=== PATIENT | male | born 1990 | race Caucasian/White ===

== ENCOUNTER 2019-06-13 23:29 | Emergency (ER) | payer OTHER ==
--- NOTE | 2019-06-14 00:01 | PDOC ---
Medical Decision Making - Medical Decision Making 06/14/19 00:01 Patient seen by the advanced practice provider under my direct supervision. Ancillary testing reviewed as necessary. I agree with plan as outlined by the advanced practice provider. Discharge - Discharge Information Problems reviewed: Yes Clinical Impression/Diagnosis: Rectal bleeding Condition: Fair - Follow up/Referral - Patient Discharge Instructions - Post Discharge Activity
[2019-06-14 00:12] VITALS: BP 139/94; PULSE 77; TEMP 98.5; BMI 23.6
--- NOTE | 2019-06-14 00:25 | PDOC ---
History of Present Illness - General Chief Complaint: Rectal Bleed Stated Complaint: BLOOD IN STOOL Time Seen by Provider: 06/13/19 23:57 History Source: Patient Exam Limitations: No Limitations Past History - Past Medical History Allergies/Adverse Reactions: Allergies Allergy/AdvReac Type Severity Reaction Status Date / Time No Known Allergies Allergy Verified 06/14/19 00:10 Home Medications: Ambulatory Orders Albuterol Sulfate Inhaler - [Ventolin Hfa Inhaler -] 2 inh PO PRN PRN 03/26/19 Cetirizine HCl/Pseudoephedrine [Zyrtec-D Tablet] 1 each PO DAILY 03/26/19 Fluticasone Prop 0.05% Nasal [Flonase -] 1 - 2 spray NS DAILY 03/26/19 Tetrahydrz/Dext 70/Peg 400/Pvp [Visine Advanced Eye Drop] 15 ml OP PRN PRN 03/26 Hydrocortisone Acetate [Anusol Hc Suppository -] 25 mg RC DAILY #14 supp.rect Asthma: Yes Cardiac Disorders: No COPD: No Diabetes: No GI Disorders: No Disorders: No HTN: No Kidney Stones: No Seizures: No - Surgical History Abdominal Surgery: No Appendectomy: No Cardiac Surgery: No Cholecystectomy: No Lung Surgery: No Neurologic Surgery: No Orthopedic Surgery: No - Reproductive History Testicular Surgery: No - Psycho Social/Smoking Cessation Hx Smoking History: Never smoked Number of Cigarettes Smoked Daily: 10 'Breaking Loose' booklet given: 03/26/19 Hx Alcohol Use: No Drug/Substance Use Hx: No Substance Use Type: None Hx Substance Use Treatment: No *Physical Exam - Vital Signs Last Vital Signs Temp Pulse Resp BP Pulse Ox 98.5 F 77 18 139/94 98 06/13/19 23:56 06/13/19 23:56 06/13/19 23:56 06/13/19 23:56 06/13/19 23:56 - Physical Exam General Appearance: No: Apparent Distress Respiratory/Chest: positive: Lungs Clear, Normal Breath Sounds. negative: Respiratory Distress Cardiovascular: positive: Regular Rhythm, Regular Rate, S1, S2. negative: Murmur Gastrointestinal/Abdominal: positive: Normal Bowel Sounds, Soft. negative: Tender, Distended, Guarding, Rebound Rectal Exam: positive: hemorrhoids (external, nonthrombosed, not bleeding). negative: melena Neurologic: positive: Alert Medical Decision Making - Medical Decision Making 29 y/o M with hx of psoriasis, substance abuse (on Suboxone for 2 months) presents for hard stools for around 1 week and BRBPR x 2-3 days. Last BM was today, which was normal in size, but hard in consistency. Sometimes the blood is dark red in color. Patient mentions he has been having generalized abdominal aches for the past few months and sometimes stool can alternate between constipation and diarrhea. Denies fever, sob, cp, vomiting, melena, dizziness, fatigue. Patient is not on a bowel regimen despite taking Suboxone. States only tried 1 type of stool softener a few weeks ago, but does not recall name. Denies abdominal surgeries. Likely from external hemorrhoids Will also refer to GI for further evaluation as well D/W Dr. Carmen - recommends patient f/u the doctor who prescribed his suboxone to start him on a bowel regimen; also recommended for CBC However, patient refused CBC (patient asymptomatic) Patient states he can see the doctor who prescribed him suboxone next week 06/14/19 00:17 Discharge - Discharge Information Problems reviewed: Yes Clinical Impression/Diagnosis: External hemorrhoids Condition: Stable Disposition: HOME - Admission No - Additional Discharge Information Prescriptions: Hydrocortisone Acetate [Anusol Hc Suppository -] 25 mg RC DAILY #14 supp.rect Prescription Drug Monitoring Program (I-STOP) results: I-STOP not reviewed - Follow up/Referral Referrals: Jerrell Nunez MD [Staff Physician] - 2 Days - Patient Discharge Instructions Patient Printed Discharge Instructions: DI for Hemorrhoids Additional Instructions: Thank you for choosing [facility]. It was a pleasure taking care of you. Please take the Anusol as directed You were referred to GI doctor for further evaluation of your symptoms Please follow-up with the doctor who prescribes your Suboxone to be started on a bowel regimen. Return to the Emergency Department if your symptoms worsen or persist, you have fever, shortness of breath, chest pain, severe abdominal pain, vomiting, black stools or other concerning symptoms. - Post Discharge Activity
== END 2019-06-14 00:49 | disposition home or self-care (01) ==
LOC: JER 23:29
DX: K64.4 Residual hemorrhoidal skin tags (principal); L40.9 Psoriasis, unspecified
CPT/HCPCS: 99281-25